=== PATIENT | male | born 1980 | race Hispanic/Latino ===

== ENCOUNTER 2017-07-28 14:44 | Emergency (ER) | payer SELFPAY ==
[2017-07-28] MEDS ORDERED: Acetaminophen 500 MG TAB ONE (16:02)
[2017-07-28] MEDS ORDERED: Dexamethasone 4 mg/ml Vial ONE (16:21)
== END 2017-07-28 17:45 | disposition home or self-care (01) ==
LOC: ERS 14:44
DX: J02.9 Acute pharyngitis, unspecified (principal); F17.210 Nicotine dependence, cigarettes, uncomplicated
CPT/HCPCS: 87081; 87430; 96372; 99406; J1100